=== PATIENT | female | born 1965 | race Caucasian/White ===

== ENCOUNTER 2024-12-02 22:55 | Inpatient (IN) | payer MEDICAID ==
[~2024-12-02] VITALS: Ht 156.6 cm; Wt 74.8 kg
[2024-12-03] VITALS (11 sets, daily range): BP systolic 119–161; BP diastolic 56–83; PULSE 76–99; RESP 0–20; TEMP 36.3–36.9; O2SAT 93–99
[2024-12-03] MEDS: SODIUM CHLORIDE 0.9% 1,000 ML IV ONE (00:14)
[2024-12-03 00:31] LABS: HEMATOCRIT. 24.0 % (36.0-48.0); HEMOGLOBIN. 7.7 g/dL (12.0-16.0); MEAN PLATELET VOLUME 7.8 fl (7.4-10.4); PLATELET 385 x1000/uL (130-400); RED BLOOD CELL COUNT 2.56 mill/uL (4.2-5.4); RED CELL DISTRIBUTION WIDTH 14.1 % (11.6-14.6)
[2024-12-03 00:31] LABS: BG BASE EXCESS -8.7 mmol/L (-2.0-3.0); BG CARBOXYHEMOGLOBIN 0.3 % (0.5-1.5); BG DEOXYHEMOGLOBIN 3.2 % (0.0-5.0); BG HCO3 ACT 17.2 mmol/L (21.0-28.0); BG METHEMOGLOBIN 0.3 % (0.5-1.5); BG OXYGEN SATURATION 96.8 % (94.0-98.0); BG OXYHEMOGLOBIN 96.2 % (94.0-98.0); BG PCO2 37.1 mmHg (32.0-45.0); BG PH 7.284 (7.350-7.450); BG PO2 89.2 mmHg (83.0-108.0); BG TOTAL HEMOGLOBIN 9.5 g/dL (12.0-16.0); BG VENT MODE ROOM AIR
[2024-12-03 00:44] LABS: CREATININE 4.0 mg/dL (0.6-1.0)
[2024-12-03 00:45] LABS: UREA NITROGEN BLOOD 55 mg/dL (9-23)
[2024-12-03 00:46] LABS: TROPONIN I HIGH SENSITIVITY 4 ng/L (3.0-34)
[2024-12-03 00:50] LABS: LACTIC ACID 2.2 mmol/L (0.4-2.0)
[2024-12-03 01:21] LABS: BAND% 1.0 % (1.0-6.0); LYMPHOCYTES % MANUAL 6.0 % (20.0-60.0); MONOCYTES % MANUAL 2.0 % (2.0-8.0); NEUTROPHILS % MANUAL 91.0 % (45.0-75.0); PLATELET ESTIMATE NORMAL
[2024-12-03 01:30] LABS: CREATININE 3.7 mg/dL (0.6-1.0); UREA NITROGEN BLOOD 51.0 mg/dL (9-23)
[2024-12-03] MEDS: ALBUTEROL (0.083%) 2.5MG/3ML NEB HHN NR (02:15)
[2024-12-03] MEDS: SODIUM BICARBONATE 8.4% 50MEQ/50ML SYR IV NR (02:35)
[2024-12-03] MEDS: CALCIUM CHLORIDE 1GM/10ML SYR IV NR (02:35)
[2024-12-03] MEDS: SODIUM POLYSTYRENE SULFONATE 15 G/60 ML BOT PO NR (02:36)
[2024-12-03 02:45] LABS: CLARITY URINE CLEAR (CLEAR); COLOR URINE YELLOW (YELLOW); GLUCOSE URINE 3+ (NEGATIVE); KETONES URINE NEGATIVE (NEGATIVE); LEUKOCYTE ESTERASE URINE NEGATIVE (NEGATIVE); NITRITE URINE NEGATIVE (NEGATIVE); OCCULT BLOOD URINE TRACE (NEGATIVE); PH URINE 6.0 (4.5-8.0); PROTEIN URINE 2+ (NEGATIVE); SPECIFIC GRAVITY URINE 1.015 (1.005-1.030); UROBILINOGEN URINE 0.2 E.U./dL (0.2-1.0)
[2024-12-03] MEDS: INSULIN REGULAR (HUMULIN R) 1000UNITS/10ML VIAL IV NR (02:50)
[2024-12-03 03:45] LABS: RBC URINE 0-2 /hpf (0-2); SQUAMOUS EPITHELIAL CELL URINE FEW /lpf (RARE/1+); WBC URINE 0-2 /hpf (0-2)
[2024-12-03 03:46] LABS: BACTERIA URINE NONE SEEN
[2024-12-03 04:25] LABS: CREATININE 3.8 mg/dL (0.6-1.0); UREA NITROGEN BLOOD 54.0 mg/dL (9-23)
[2024-12-03] MEDS: SODIUM BICARBONATE 150 MEQ in DEXTROSE 5% WATER 850 ML IV NR (05:41)
[2024-12-03] MEDS: CEFTRIAXONE 1GM/50ML 50 ML IV SCH (06:00)
[2024-12-03] MEDS ORDERED: MAGNESIUM/ALUMINUM HYDROXIDE/SIMETHICONE 30ML UDC PO PRN (06:00)
[2024-12-03] MEDS ORDERED: ONDANSETRON HCL 4MG/2ML INJ IV PRN (06:00)
[2024-12-03] MEDS ORDERED: IPRATROPIUM/ALBUTEROL 0.5-3(2.5)MG/3ML NEB NEB PRN (06:00)
[2024-12-03] MEDS ORDERED: DEXTROSE 50% WATER 50ML SYRINGE IV PRN (06:00)
[2024-12-03] MEDS ORDERED: HYDROCODONE/ACETAMINOPHEN 5/325MG TABLET PO PRN (06:00)
[2024-12-03] MEDS: BLOOD SUGAR DIAGNOSTIC STRIP TEST SCH (07:30)
[2024-12-03] MEDS: PANTOPRAZOLE SODIUM 40 MG/VIAL IV SCH (08:45)
[2024-12-03] MEDS: INSULIN LISPRO 100 UNITS/ML SUBCUT SCH (08:46)
[2024-12-03 11:23] LABS: *AMPHETAMINES SCREEN URINE NEGATIVE (NEGATIVE)
[2024-12-03 11:24] LABS: *BARBITURATES SCREEN URINE NEGATIVE (NEGATIVE); *BENZODIAZEPINES SCREEN URINE NEGATIVE (NEGATIVE); *COCAINE SCREEN URINE NEGATIVE (NEGATIVE); CANNABINOID URINE SCREEN NEGATIVE (NEGATIVE); ECSTASY MDMA SCREEN URINE NEGATIVE (NEGATIVE); METHADONE URINE SCREEN NEGATIVE (NEGATIVE); OPIATES URINE SCREEN NEGATIVE (NEGATIVE); PHENCYCLIDINE URINE SCREEN NEGATIVE (NEGATIVE)
[2024-12-03 11:31] LABS: TROPONIN I HIGH SENSITIVITY 10 ng/L (3.0-34)
[2024-12-03 11:36] LABS: INR 0.9
[2024-12-03] MEDS ORDERED: LIDOCAINE HCL 1% 10 MG/ML 10ML VIAL ONE (11:45)
[2024-12-03 12:08] LABS: HEPATITIS A AB IGM NEGATIVE (Negative); HEPATITIS B CORE AB IGM NEGATIVE (Negative)
[2024-12-03 12:09] LABS: HEPATITIS C AB NON REACTIVE (Neg) (Negative)
[2024-12-03] MEDS ORDERED: HEPARIN 1000 UNITS/ML 10ML ONE (13:02)
[2024-12-03] MEDS: PNEUMOCOCCAL 20-VAL CONJ-DIP CRM 0.5ML IM ONE (16:15)
[2024-12-03] MEDS ORDERED: INFLUENZA VACCINE 05/PF 0.5 ML SYRINGE IM ONE (16:15)
[2024-12-03 16:34] LABS: TROPONIN I HIGH SENSITIVITY 13 ng/L (3.0-34)
[2024-12-04] VITALS (23 sets, daily range): BP systolic 111–167; BP diastolic 60–109; PULSE 81–97; RESP 12–21; TEMP 35.78064–37; O2SAT 95–100
[2024-12-04 05:50] LABS: BASOPHILS % 0.2 % (0.0-2.0); EOSINOPHILS % 2.6 % (0.0-5.0); HEMATOCRIT. 23.7 % (36.0-48.0); HEMOGLOBIN. 8.0 g/dL (12.0-16.0); LYMPHOCYTES % 16.6 % (20.0-50.0); MEAN PLATELET VOLUME 7.4 fl (7.4-10.4); MONOCYTES % 6.5 % (2.0-8.0); NEUTROPHILS % 74.1 % (40.0-76.0); PLATELET 381 x1000/uL (130-400); RED BLOOD CELL COUNT 2.68 mill/uL (4.2-5.4); RED CELL DISTRIBUTION WIDTH 14.0 % (11.6-14.6)
[2024-12-04 06:05] LABS: UREA NITROGEN BLOOD 20.0 mg/dL (9-23)
[2024-12-04] MEDS: CEFTRIAXONE 1GM/50ML 50 ML IV SCH (06:08)
[2024-12-04 07:27] LABS: CREATININE 1.9 mg/dL (0.6-1.0)
[2024-12-04] MEDS ORDERED: NALOXONE HCL 0.4MG/ML VIAL IV PRN (08:30)
[2024-12-04] MEDS: POTASSIUM CHLORIDE 20MEQ TABLET SR PO NR (09:46)
[2024-12-05] VITALS (15 sets, daily range): BP systolic 113–168; BP diastolic 46–107; PULSE 79–102; RESP 0–24; TEMP 36.3–37.3; O2SAT 97–99
[2024-12-05] MEDS: CLONIDINE 0.1MG TABLET PO PRN (04:09)
[2024-12-05] MEDS: HYDRALAZINE 20MG/ML VIAL IV PRN (05:43)
[2024-12-05 07:08] LABS: BASOPHILS % 0.6 % (0.0-2.0); EOSINOPHILS % 2.2 % (0.0-5.0); HEMATOCRIT. 25.3 % (36.0-48.0); HEMOGLOBIN. 8.1 g/dL (12.0-16.0); LYMPHOCYTES % 18.5 % (20.0-50.0); MEAN PLATELET VOLUME 8.0 fl (7.4-10.4); MONOCYTES % 8.1 % (2.0-8.0); NEUTROPHILS % 70.6 % (40.0-76.0); PLATELET 332 x1000/uL (130-400); RED BLOOD CELL COUNT 2.76 mill/uL (4.2-5.4); RED CELL DISTRIBUTION WIDTH 14.5 % (11.6-14.6)
[2024-12-05 07:15] LABS: CREATININE 2.2 mg/dL (0.6-1.0)
[2024-12-05 07:18] LABS: UREA NITROGEN BLOOD 15 mg/dL (9-23)
[2024-12-05 07:20] LABS: PHOSPHORUS 3.1 mg/dL (2.5-4.9)
[2024-12-06] VITALS (7 sets, daily range): BP systolic 87–161; BP diastolic 49–87; PULSE 77–93; RESP 14–20; TEMP 36.50292–37.3; O2SAT 97–100
[2024-12-06 07:00] LABS: CREATININE 2.8 mg/dL (0.6-1.0); UREA NITROGEN BLOOD 21.0 mg/dL (9-23)
[2024-12-06 07:11] LABS: BASOPHILS % 0.4 % (0.0-2.0); EOSINOPHILS % 1.5 % (0.0-5.0); HEMATOCRIT. 24.6 % (36.0-48.0); HEMOGLOBIN. 8.1 g/dL (12.0-16.0); LYMPHOCYTES % 19.2 % (20.0-50.0); MEAN PLATELET VOLUME 8.1 fl (7.4-10.4); MONOCYTES % 7.5 % (2.0-8.0); NEUTROPHILS % 71.4 % (40.0-76.0); PLATELET 326 x1000/uL (130-400); RED BLOOD CELL COUNT 2.69 mill/uL (4.2-5.4); RED CELL DISTRIBUTION WIDTH 13.9 % (11.6-14.6)
[2024-12-06] MEDS: ACETAMINOPHEN 325MG TABLET PO PRN (20:45)
[2024-12-07] VITALS (7 sets, daily range): BP systolic 112–169; BP diastolic 61–88; PULSE 77–83; RESP 17–20; TEMP 36.4–36.9; O2SAT 96–99
== END 2024-12-07 17:57 | disposition home or self-care (01) | DRG 420 ==
LOC: ER 22:55 → EDBEDREQ 12-03 00:17 → 5EST 12-03 02:35 → EDBEDREQ 12-03 02:39 → EDBEDREQSVC 12-03 02:39 → ENRESERV 12-03 02:52 → 5WST 12-06 01:34
PROVIDERS: ADMIT Internal Medicine; ATTEND Internal Medicine
PROC: 05HM33Z Insertion of Infusion Device into Right Internal Jugular Vein, Percutaneous Approach (ICD-10-PCS; principal; 2024-12-03)
PROC: B543ZZA Ultrasonography of Right Jugular Veins, Guidance (ICD-10-PCS; 2024-12-03)
PROC: 5A1D70Z Performance of Urinary Filtration, Intermittent, Less than 6 Hours Per Day (ICD-10-PCS; 2024-12-03)
PROC: 5A1D70Z Performance of Urinary Filtration, Intermittent, Less than 6 Hours Per Day (ICD-10-PCS; 2024-12-04)
PROC: 5A1D70Z Performance of Urinary Filtration, Intermittent, Less than 6 Hours Per Day (ICD-10-PCS; 2024-12-06)
DX: E11.00 Type 2 diabetes mellitus with hyperosmolarity without nonketotic hyperglycemic-hyperosmolar coma (NKHHC) (principal); E87.20 Acidosis, unspecified; N17.9 Acute kidney failure, unspecified; E11.22 Type 2 diabetes mellitus with diabetic chronic kidney disease; I12.9 Hypertensive chronic kidney disease with stage 1 through stage 4 chronic kidney disease, or unspecified chronic kidney disease; E87.5 Hyperkalemia; E87.1 Hypo-osmolality and hyponatremia; D64.9 Anemia, unspecified; E87.70 Fluid overload, unspecified; E78.00 Pure hypercholesterolemia, unspecified; Z86.73 Personal history of transient ischemic attack (TIA), and cerebral infarction without residual deficits
CPT/HCPCS: 36415; 36556; 36600; 71045; 76770; 77001; 80048; 80305; 81003; 82010; 82375; 82805; 82962; 83605; 83735; 84100; 84484; 85025; 86705; 86706; 86709; 87340; 90935; 93005; 93970; 94070; 94640; 94664; 98960; 99291; C1752; J0360; J0696; J1644; J1815; J2003; J2405; J2470; J3490; J7030; J7070

== ENCOUNTER → 2025-05-26 | Emergency (ER) | payer MEDICAID ==
[~2025-05-26] VITALS: Ht 160 cm; Wt 55.0 kg
[~2025-05-26] MED LIST: ATOR-2 PO; CETI10CA2 PO; EMPA10TA PO; EZET10TA81 PO; FERR325T6 MT; FURO20TA4 MT; GUAI5SYR; NIFE-33 MT; SODI10PO PO; SODI650T PO
[2025-05-26 15:21] VITALS: O2SAT 99
[2025-05-26] MEDS: ACETAMINOPHEN 325MG TABLET PO SCH (16:33)
[2025-05-26 17:47] VITALS: BP 138/69; PULSE 87; RESP 11; TEMP 36.7; O2SAT 98
== END ==
LOC: ER 15:15 → CANBEDREQ 16:05
DX: R42 Dizziness and giddiness (principal); R53.1 Weakness; E11.22 Type 2 diabetes mellitus with diabetic chronic kidney disease; E78.00 Pure hypercholesterolemia, unspecified; I12.0 Hypertensive chronic kidney disease with stage 5 chronic kidney disease or end stage renal disease; N18.6 End stage renal disease; J45.909 Unspecified asthma, uncomplicated; Z86.73 Personal history of transient ischemic attack (TIA), and cerebral infarction without residual deficits; Z79.899 Other long term (current) drug therapy; Z99.2 Dependence on renal dialysis; Z98.890 Other specified postprocedural states
CPT/HCPCS: 71045; 93005; 99283